=== PATIENT | female | born 1995 | race Caucasian/White ===

== ENCOUNTER 2022-05-31 12:28 | Outpatient (CLI) | payer OTHER, SELFPAY ==
--- NOTE | ~2022-05-31 | US_ITS ---
EXAMINATION: US OB <= 14 weeks fetus DATE: 05/31/2022 13:01 INDICATION: First trimester dating TECHNIQUE: Real-time pelvic transabdominal and transvaginal ultrasound was performed. COMPARISON: None. FINDINGS: The uterus measures 10.6 x 7.2 x 5.2 cm. There is an intrauterine gestational sac. A yolk sac is identified. heart motion is identified measuring 157 beats per minute (bpm) by M-mode Do ppler. The crown rump length measures 1.8 cm, which correlates with an estimated gestational ag e of 8 weeks and 2 day(s) (+/-) 5 day(s). The ovaries are not visualized however no adnexal abnormality is seen. There is no free fluid in the pelvis. IMPRESSION: 1. Live intrauterine with an estimated gestational age of 8 weeks and 2 day(s) (+/-) 5 day( s) and an estimated delivery date of 01/08/2023. Reviewed, dictated and finalized at location B. ATTENDANT IMPRESSION: 1. Live intrauterine with an estimated gestational age of 8 weeks and 2 day(s) (+/-) 5 day(s) and an estimated delivery date of 01/08/2023.
== END 2022-05-31 12:29 | disposition home or self-care (01) ==
PROVIDERS: PCP Nurse Practitioner Family; Visit Provider Obstetrics & Gynecology
DX: Z36.87 Encounter for antenatal screening for uncertain dates (principal); Z3A.08 8 weeks gestation of pregnancy
CPT/HCPCS: 76801

== ENCOUNTER 2022-11-08 10:45 | Outpatient (RCR) | payer OTHER, SELFPAY ==
[2022-11-08 11:01] VITALS: BP 114/72; PULSE 106
[2022-11-08 11:16] VITALS: BP 106/68; PULSE 95
[2022-11-08 11:31] VITALS: BP 105/65; PULSE 91
[2022-11-08 11:40] VITALS: BP 114/72; PULSE 89
== END 2023-01-03 12:45 | disposition home or self-care (01) ==
LOC: ANHOBOP 10:45
PROVIDERS: PCP Nurse Practitioner Family; Visit Provider Obstetrics & Gynecology
DX: O36.8130 Decreased fetal movements, third trimester, not applicable or unspecified (principal); Z3A.31 31 weeks gestation of pregnancy
CPT/HCPCS: 59025

== ENCOUNTER 2022-12-27 07:22 | Inpatient (IN) | payer OTHER, SELFPAY ==
[2022-12-27] VITALS (52 sets, daily range): BP systolic 104–169; BP diastolic 50–126; PULSE 82–146; RESP 14–18; TEMP 36.1–36.8; O2SAT 96–100; BMI 34.0
--- NOTE | 2022-12-27 07:52 | P.HP_ITS ---
H&P: HPI History of Present Illness Date/Time: 12/27/22 07:52 Chief Complaint: Ruptured membranes Narrative: this is a 27-year-old 3 para 2 whose last menstrual period was 03/13/2022, and EDC is 01/08/2023, confirmed by 8 week ultrasound presents at term in active labor. She is positive for group B strep. She has a history of depression anxiety has been on sertraline and Wellbutrin. She stopped the sertraline. [facility] Past Medical History Medical History Anxiety Depression History of blood transfusion HLD (hyperlipidemia) IUD (intrauterine device) in place Family History Family History Other Patient denies significant medical history Social History Social History Smoking status: Current every day smoker Substance use: never Spiritual care concerns: No Meds Home Medications and Allergies Home Medications Medication Instructions Recorded Confirmed Type bupropion HCl 300 mg 24 hr tablet, 300 mg PO QAM 12/13/22 12/13/22 History extended release prenat.vits,howard,[id number] 1 tablet 12/13/22 History Allergies Allergy/AdvReac Type Severity Reaction Status Date / Time No Known Allergies Allergy Unverified 03/09/18 11:03 Vital Signs Vital Signs - 24 hr 12/27/22 07:45 Pulse Rate 97 Blood Pressure 128/89 Exam Const: General: cooperative, healthy appearing and comfortable Nutritional Appearance: average body habitus Orientation/consciousness: oriented to person, oriented to place and oriented to time HENMT: Head: normal to inspection Resp: Effort & Inspection: normal respiratory effort Cardio: Rate: regular rate Rhythm: regular rhythm Heart sounds: S1 no rmal heart sound present and S2 normal heart sound present GI: Inspection: normal to inspection ( Gravid soft uterus) : External Female Exam: normal external appearance Speculum Exam - Vagina: normal appearance of the vagina Speculum Exam - Cervix: normal appearance of the cervix ( 5cm / clear fluid/ heart tones reassuring) Assessment and Plan Assessment and plan (1) Term : Code(s): Z34.90 - Encounter for supervision of normal , unspecified, unspecified trimester Status: Acute (2) Positive testing for group B Streptococcus: Code(s): B95.1 - Streptococcus, group B, as the cause of diseases classified elsewhere Status: Acute (3) Spontaneous rupture of membranes: Status: Acute Plan spontaneous vaginal delivery expected. Group B strep prophylaxis will be undertaken. She is an epidural candidate
[2022-12-27] MEDS: AMPICILLIN 2 GM/NS 100 ML 2 GM/100 ML BAG IVPB (08:10)
[2022-12-27 08:13] LABS: Basophils Absolute Auto 0.1 K/mm3 (0.0-0.1); Basophils Percent Auto 0.6 % (0.2-1.2); Eosinophils Absolute Auto 0.1 K/mm3 (0-0.3); Eosinophils Percent Auto 0.7 % (0-4.4); Immature Granulocyte Percent A 1.5 % (0-0.5); Lymphocytes Absolute Auto 2.06 K/mm3 (0.9-3.2); Lymphocytes Percent Auto 15.4 % (18.3-44.2); Mean Corpuscular HGB Conc 33.3 g/dl (32-36); Mean Platelet Volume 10.5 fl (7.4-10.4); Monocytes Absolute Auto 0.8 K/mm3 (0.1-0.6); Monocytes Percent Auto 6.3 % (2.6-8.5); Neutrophils Absolute Auto 10.1 K/mm3 (1.3-6.7); Neutrophils Percent Auto 75.5 % (45.5-73.1); Platelet Count Result 187 k/mm3 (150-375); Red Blood Count 3.94 M/mm3 (4.2-5.4); Red Cell Distribution Width 13.4 % (11.5-14.5); White Blood Count 13.4 K/mm3 (4.5-10.0)
[2022-12-27] MEDS: fentaNYL CITRATE INJ (*CRX) 100 MCG/2 ML VIAL 50 MCG IV PUSH (08:20)
[2022-12-27] MEDS: LACTATED RINGERS 1,000 ML 125 ML IV CONT ×2 (08:21→10:22)
--- NOTE | 2022-12-27 08:28 | LDADM ---
This patient, Jerica Cannon, was admitted to Labor/Delivery/Recovery 105 on 12/27/22 at 07:22. Plans for labor, pain management and were discussed with patient. Patient/family oriented to hospital policies and general routines including ID bracelet, bed and alarms, visiting hours, pain management, procedures, bathroom and other care routines, personal items, smoking policy, room service/diet and guest tray routines, infant security routines, and visiting hours. Patient/Family are encouraged to report perceived risks to care and to ask questions if they do not understand what they are told or what they should do. See OBIX for further documentation.
[2022-12-27] MEDS: OXYTOCIN 30 UNITS/NS 500 ML 30 UNITS/500 ML BAG 999 UNITS IV CONT (09:41)
--- NOTE | 2022-12-27 09:46 | PM.OBPRVD ---
OB - Delivery Note Procedure Delivery date: 12/27/22 Events: Positive Group B Strep (GBS) Induction method: None Delivery monitor: External FHT Route of delivery: Episiotomy description: None Laceration Description: None Specimen: No Quantitative Blood Loss (ml): 60 Anesthesia type: Epidural Disposition: Floor Baby Date of : 12/27/22 Time of : 09:38 Weeks of gestation at delivery: 38 Infant gender: Female presentation: vertex position: Left Occiput Anterior Placenta delivery description: Spontaneous Cord Vessel Description: 3 Vessels score one minute: 8 score five minutes: 9 Narrative: amp x 1
--- NOTE | 2022-12-27 09:48 | PM.DS ---
DS: Admitting Diagnosis Discharge Date 12/29/22 Admitting Diagnosis Term / positive group B strep DS: Discharge Diagnosis Discharge Diagnosis (1) Spontaneous rupture of membranes: Status: Acute (2) Positive testing for group B Streptococcus: Code(s): B95.1 - Streptococcus, group B, as the cause of diseases classified elsewhere Status: Acute (3) Term : Code(s): Z34.90 - Encounter for supervision of normal , unspecified, unspecified trimester Status: Acute DS: Summary Hospital Course Reason for hospitalization: spontaneous rupture membranes at term Hospital Course: patient was admitted at 38 half weeks gestation with spontaneous rupture membranes prior to admission. She is positive group B strep receive 1 dose of ampicillin and epidural anesthesia delivered spontaneously the female infant. Her hospital course unremarkable. She remained afebrile. She was up, voiding without difficulty, eating regular diet, ambulating, generally without complaints. Time Spent with Patient Time attestation: Total time spent providing and/or coordinating discharge services: Exam Const: General: cooperative, healthy appearing and comfortable Nutritional Appearance: average body habitus Orientation/consciousness: oriented to person, oriented to place and oriented to time HENMT: Head: normal to inspection Resp: Effort & Inspection: normal respiratory effort Cardio: Rate: regular rate Rhythm: regular rhythm Heart sounds: S1 normal heart sound present and S2 normal heart sound present GI: Inspection: normal to inspection ( Fundus firm below umbilicus) DS: Data Data Completed and Pending Labs on day of discharge: Labs from last 24 hours 12/27/22 07:51 WBC 13.4 H RBC 3.94 L Hgb 13.0 Hct 39.0 MCV 99.0 MCH 33.0 MCHC 33.3 RDW 13.4 Plt Count 187 MPV 10.5 H Immature Gran % (Auto) 1.5 H Neut % (Auto) 75.5 H Lymph % (Auto) 15.4 L [place] % (Auto) 6.3 Eos % (Auto) 0.7 Baso % (Auto) 0.6 Lymph # (Auto) 2.06 [place] # (Auto) 0.8 H Eos # (Auto) 0.1 Baso # (Auto) 0.1 Abs Immat Gran (auto) 0.20 H Absolute Neuts (auto) 10.1 H Absolute Nucleated RBC 0.0 Nucleated RBC % 0.0 RPR Pending Blood Type O Positive Antibody Screen Negative Discharge Plan Discharge Attending physician on discharge: Pollo Sorenson Discharging Clinician: Pollo Sorenson Patient Disposition: Home, Self-Care Activity: may shower and pelvic rest Diet: heart healthy Wound Care Instructions: follow printed instructions Patient Instructions: Antibiotic Form Stand Alone Forms: General Discharge Information Follow-up/Referrals: Pollo Sorenson MD [Physician] - Discharge Medications: Continued #2 Tablet 1 tablet bupropion HCl 300 mg Tablet Extended Release 24 Hr 300 mg PO QAM Date of admission: 12/27/22 07:22 Primary Care Provider: Gillian,Sary Woods Admitting Provider: Pollo Sorenson Attending physician on admission: Pollo Sorenson Condition: Stable
[2022-12-27] MEDS: OXYTOCIN 30 UNITS/NS 500 ML 30 UNITS/500 ML BAG 125 UNITS IV CONT (10:20)
[2022-12-27] MEDS: WITCH HAZEL 40 PADS 1 PAD TOPICAL (11:17)
[2022-12-27] MEDS: BENZOCAINE 20% AER SPR (*SP) 56 GM CAN 1 SPRAY TOPICAL (11:17)
--- NOTE | 2022-12-27 11:21 | WPDANESEPPF ---
Anes - Initial Pre Proc Eval Date/Time: 12/27/22 11:21 Surgeon: Pollo Li MD Pre Op Diagnosis: Labor Patient Data Age: 27 Gender: F Height: 1.63 m Weight: 90 kg Last Vital Signs Temp 36.1 C L 12/27/22 09:20 Pulse 82 12/27/22 11:15 BP 123/80 12/27/22 11:15 Pulse Ox 100 12/27/22 09:37 O2 Del Method Room Air 12/27/22 08:26 Allergies Allergy/AdvReac Type Severity Reaction Status Date / Time No Known Allergies Allergy Unverified 03/09/18 11:03 Home Medications Medication Instructions Recorded Confirmed Type bupropion HCl 300 mg 24 hr tablet, 300 mg PO QAM 12/13/22 12/13/22 History extended release prenat.vits,howard,yik-[id number] 1 tablet 12/13/22 History Laboratory Tests 12/27/22 07:51 WBC 13.4 H K/mm3 (4.5-10.0) RBC 3.94 L M/mm3 (4.2-5.4) Hgb 13.0 g/dL (12.0-15.0) Hct 39.0 % (37.0-47.0) MCV 99.0 fl (80-100) MCH 33.0 pg (26-34) MCHC 33.3 g/dl (32-36) RDW 13.4 % (11.5-14.5) Plt Count 187 k/mm3 (150-375) MPV 10.5 H fl (7.4-10.4) Immature Gran % (Auto) 1.5 H % (0-0.5) Neut % (Auto) 75.5 H % (45.5-73.1) Lymph % (Auto) 15.4 L % (18.3-44.2) [place] % (Auto) 6.3 % (2.6-8.5) Eos % (Auto) 0.7 % (0-4.4) Baso % (Auto) 0.6 % (0.2-1.2) Lymph # (Auto) 2.06 K/mm3 (0.9-3.2) [place] # (Auto) 0.8 H K/mm3 (0.1-0.6) Eos # (Auto) 0.1 K/mm3 (0-0.3) Baso # (Auto) 0.1 K/mm3 (0.0-0.1) Abs Immat Gran (auto) 0.20 H K/mm3 (0.00-0.031) Absolute Neuts (auto) 10.1 H K/mm3 (1.3-6.7) Absolute Nucleated RBC 0.0 K/mm3 (0.0-0.012) Nucleated RBC % 0.0 % (0.0-0.2) RPR Pending Blood Type O Positive Antibody Screen Negative Patient hx anesthesia problems: none Family hx anesthesia problems: none Results Review: All pre-operative results and documents have been reviewed as part of the pre-operative evaluation. PMFSH Past Medical History Medical History Anxiety Depression History of blood transfusion HLD (hyperlipidemia) IUD (intrauterine device) in place Family History Family History Other Patient denies significant medical history Social History Social History Smoking status: Former smoker Tobacco type: cigarettes Second hand tobacco smoke exposure: No Substance use: never Lack of Transportation: No Lack of Food: Never True Current Housing: I Have Housing Concerned About Future Housing: No Difficulty Paying Gas/Electric Bills: No Difficulty Paying for Meds: No Currently Unemployed: No Education: Don't Know Difficulty w/ Childcare or Family Care: No Spiritual care concerns: No Anes - Eval Final PreProcedure Day of Procedure 12/27/22 11:21 Patient weight: obese Heart: regular rate and rhythm Lungs: clear to auscultation Neurological: alert and oriented ASA classification: II Emergent: no Anesthetic plan: proceed Anesthesia type and monitoring: regional epidural and standard monitoring Results Review: All pre-operative results and documents have been reviewed as part of the pre-operative evaluation. Informed Consent: The patient's anesthetic plan and its attendant risks and benefits were discussed with the patient/family/POA. Questions were solicited and answers provided to the satisfaction of the patient/family/POA.
--- NOTE | 2022-12-27 12:02 | PC.NURSE ---
Patient transferred to post room #287 via stretcher. Support person present. Oriented to unit, room, information board, rooming in, admission packet and security measures. Patient verbalizes understanding.
[2022-12-27 15:49] LABS: Rapid Plasma Reagin Non-Reactive (NonReactive)
--- NOTE | 2022-12-27 16:15 | PC.NURSE ---
[id number] Introductions were made, then consulted with patient to assess needs related to . P3 Mother led the conversation with her?plans to feed?her infant, the?experience so far, use of a nipple shield and not a successful history. Mother works well with her with encouragement and education. Nipple shield provided to mother due to right nipple is inverted. Discussed with mom the nipple shield precautions, possible complications associated with the risks and benefits. Reviewed practicing with a nipple shield, then without and how to protect the milk supply and production. Encouraged understanding of the benefits of skin to skin (demonstrating unwrapping and placing upright on her chest), stimulating with massage touch, how to watch for early feeding cues, responsive feeding, feeding on demand and milk production. Reviewed positioning and ear, shoulder, hip alignment, supporting the breast to facilitate a deep latch, asymmetrical latch (off-center), leading with the chin with a big, open, wide gape and body close to mother. Infant latched optimally to the right breast with a nipple shield (nipple inverted) in football position. Reviewed with mother the nipple shield waltz that once the is sucking, then remove the nipple shield and aim to latch without it. refused to latch without the nipple shield. Nipple care reviewed with optimal latch and good positioning. More visitors came into the room and the consult was ended. Resources provided for inpatient with name written on the communication board. Parents voiced understanding of information, demonstrated learning and RN reported to the primary RN.
[2022-12-27] MEDS: IBUPROFEN 600 MG TABLET PO (21:45)
[2022-12-28] MEDS: IBUPROFEN 600 MG TABLET PO ×3 (04:01→19:54)
[2022-12-28 04:32] LABS: Hematocrit 36.5 % (37.0-47.0); Hemoglobin 12.3 g/dL (12.0-15.0)
--- NOTE | 2022-12-28 06:12 | P.PNOB_ITS ---
OB - PN: Subj Subjective Date/time seen: 12/28/22 06:12 Patient comments: no complaints and pain well controlled baby status: doing well OB - PN: Obj Data Labs 12/28/22 03:57 Labs: Laboratory Results - last 24 hr 12/27/22 12/28/22 07:51 03:57 WBC 13.4 H RBC 3.94 L Hgb 13.0 12.3 Hct 39.0 36.5 L MCV 99.0 MCH 33.0 MCHC 33.3 RDW 13.4 Plt Count 187 MPV 10.5 H Immature Gran % (Auto) 1.5 H Neut % (Auto) 75.5 H Lymph % (Auto) 15.4 L [place] % (Auto) 6.3 Eos % (Auto) 0.7 Baso % (Auto) 0.6 Lymph # (Auto) 2.06 [place] # (Auto) 0.8 H Eos # (Auto) 0.1 Baso # (Auto) 0.1 Abs Immat Gran (auto) 0.20 H Absolute Neuts (auto) 10.1 H Absolute Nucleated RBC 0.0 Nucleated RBC % 0.0 RPR Non-reactive Blood Type O Positive Antibody Screen Negative OB - PN A/P Plan day: 1 Plan: routine care Time Spent With Patient Time: Total time spent is greater than 50% in coordination of care (as documented) at patient's floor/unit and/or counseling patient: Time with patient: less than 15 minutes Exam Const: General: cooperative, healthy appearing and comfortable Nutritional Appearance: average body habitus Orientation/consciousness: oriented to person, oriented to place and oriented to time HENMT: Head: normal to inspection Resp: Effort & Inspection: normal respiratory effort Cardio: Rate: regular rate Rhythm: regular rhythm Heart sounds: S1 normal heart sound present and S2 normal heart sound present GI: Inspection: normal to inspection
[2022-12-28 08:00] VITALS: BP 116/86; PULSE 88; RESP 16; TEMP 36.6; O2SAT 99
--- NOTE | 2022-12-28 08:23 | WPDANLDPN2 ---
Anes-Prog Note L&D Date/Time: 12/28/22 08:23 Neuro status: Neuro function grossly intact. Cardiovascular status: normal Respiratory status: normal Airway patency: baseline Mental status: baseline Post-Op hydration status: normal Vital Signs: Last Vital Signs Temp 36.8 C 12/27/22 23:00 Pulse 88 12/27/22 23:00 Resp 18 12/27/22 23:00 BP 112/71 12/27/22 23:00 Pulse Ox 98 12/27/22 23:00 O2 Del Method Room Air 12/27/22 23:00 Pain score (VAS): 0 Post-procedural complaints: none Patient feedback: Patient satisfied with anesthetic care.
[2022-12-28] MEDS: BENZOCAINE 20% AER SPR (*SP) 56 GM CAN 1 SPRAY TOPICAL (09:00)
[2022-12-28] MEDS: DOCUSATE SODIUM 100 MG CAPSULE PO ×2 (09:00→16:00)
[2022-12-28] MEDS: MULTIVIT/MIN/PREN/FOL AC/IRON TABLET 1 TAB PO (09:00)
[2022-12-28] MEDS: WITCH HAZEL 40 PADS 1 PAD TOPICAL (09:00)
[2022-12-28] MEDS: ACETAMINOPHEN 325 MG TABLET 650 MG PO (16:00)
[2022-12-28 20:16] VITALS: BP 123/84; PULSE 78; RESP 16; TEMP 36.7; O2SAT 98
[2022-12-29] MEDS: ACETAMINOPHEN 325 MG TABLET 650 MG PO (04:28)
--- NOTE | 2022-12-29 07:06 | PM.OBPNVD ---
OB - PN: Subj Subjective Date/time seen: 12/29/22 07:06 Patient comments: no complaints and pain well controlled baby status: doing well and nursing well OB - PN: Obj Data Labs 12/28/22 03:57 OB - PN A/P Plan day: 2 Plan: routine care, discharge home and follow up 6 weeks Time Spent With Patient Time: Total time spent is greater than 50% in coordination of care (as documented) at patient's floor/unit and/or counseling patient: Time with patient: less than 15 minutes Exam Const: General: cooperative, healthy appearing and comfortable Nutritional Appearance: average body habitus Orientation/consciousness: oriented to person, oriented to place and oriented to time Resp: Effort & Inspection: normal respiratory effort Cardio: Rate: regular rate Rhythm: regular rhythm Heart sounds: S1 normal heart sound present and S2 normal heart sound present GI: Inspection: normal to inspection
[2022-12-29] MEDS: DOCUSATE SODIUM 100 MG CAPSULE PO (08:30)
[2022-12-29] MEDS: IBUPROFEN 600 MG TABLET PO (08:30)
[2022-12-29] MEDS: MULTIVIT/MIN/PREN/FOL AC/IRON TABLET 1 TAB PO (08:30)
[2022-12-29 08:35] VITALS: BP 112/75; PULSE 73; RESP 18; TEMP 37.2; O2SAT 99
[2022-12-30 10:19] VITALS: BP 128/85; PULSE 94; RESP 18; TEMP 37.1; O2SAT 98
== END 2022-12-29 10:28 | disposition home or self-care (01) | DRG 560 ==
LOC: ANHLDR 09:50 → ANHOB2 12:21
PROVIDERS: Admitting Provider Obstetrics & Gynecology; PCP Nurse Practitioner Family; Visit Provider Obstetrics & Gynecology
DX: O62.3 Precipitate labor (principal); Z37.0 Single live birth; Z3A.38 38 weeks gestation of pregnancy; O99.824 Streptococcus B carrier state complicating childbirth; O99.344 Other mental disorders complicating childbirth; F32.A Depression, unspecified; F41.9 Anxiety disorder, unspecified
CPT/HCPCS: 36415; 85014; 85018; 85025; 86592; 86850; 86900; 86901; A9270; J0290; J2590; J2795; J3010; J7120

== ENCOUNTER 2025-03-02 12:41 | Emergency (ER) | payer OTHER, SELFPAY ==
[2025-03-02 12:54] VITALS: BP 123/90; PULSE 67; RESP 16; TEMP 36.3
[2025-03-02 13:14] LABS: EDSTREPNEGPOS1 Negative (Negative)
--- NOTE | 2025-03-02 13:32 | ED_ITS ---
HPI - URI/Sore Throat General Chief Complaint: Upper Respiratory Infection Stated Complaint: Sore Throat Time Seen by Provider: 03/02/25 13:34 Source: patient and RN notes reviewed Mode of arrival: ambulatory Limitations: no limitations History of Present Illness HPI Narrative: 29-year-old female presents with concern for 2 week history of sore throat, nasal congestion, rhinorrhea. She reports general malaise. She has been taking [id number] medications without relief. MD elicited complaint: cough, sore throat, nasal congestion and sinus pain Related Data Home Medications ?Medication ?Instructions ?Recorded ?Confirmed ?Last Taken ?Type bupropion HCl 300 mg 24 hr tablet, 300 mg PO QAM 12/1303/02/25 12/12/22 22:00 History extended release prenat.vits,howard,lip-yerc-pzpwu 1 tablet 12/13/2211/21 20:00 History Allergies Allergy/AdvReac Type Severity Reaction Status Date / Time No Known Allergies Allergy Verified 03/02/25 13:15 Review of Systems Review of Systems: CONSTITUTIONAL: Reports malaise, history chills, sweats, fever. EYES: Denies visual changes, redness, or discharge. ENT: Reports rhinorrhea, congestion, sinus pain, and sore throat. CARDIOVASCULAR: Denies chest pain, palpitations, or edema. RESPIRATORY: Reports cough. Denies dyspnea. GASTROINTESTINAL: Denies abdominal pain, nausea, vomiting, diarrhea SKIN: Denies rash or itching. MUSCULOSKELETAL: Reports myalgia. NEUROLOGIC: Reports headache. All systems reviewed & are unremarkable except as noted in HPI and below PMFSH Past Medical History Medical History (Updated 03/02/25 @ 13:33 by Cora Theodore NP) History of blood transfusion Anxiety Depression IUD (intrauterine device) in place HLD (hyperlipidemia) Family History Family History Other Patient denies significant medical history Social History Social History Smoking status: Former smoker Tobacco type: cigarettes Second hand tobacco smoke exposure: No Substance use: never Lack of Transportation: No Lack of Food: Never True Current Housing: I Have Housing Concerned About Future Housing: No Difficulty Paying Gas/Electric Bills: No Difficulty Paying for Meds: No Currently Unemployed: No Education: Don't Know Difficulty w/ Childcare or Family Care: No Spiritual care concerns: No Comments At time of signature, agree with nursing past medical, surgical, social and family history. There is no relevant family history pertinent to the presenting complaint Exam Narrative: GENERAL: Well-appearing, well-nourished, and in no acute distress. HEAD: Normocephalic EYES: PERRLA, conjunctivae clear ENT: Nares clear, turbinates edematous and erythematous. Mucous membranes moist. TM pearly santillan with dull light reflex bilaterally; no tragal tenderness. Oropharynx not erythematous without lesions. Tonsils not enlarged and without exudate, no drooling, no hoarseness, no trismus, uvula midline. NECK: Supple. No lymphadenopathy CHEST: Clear to auscultation, breath sounds equal. No wheezing, rhonchi, rales, or stridor. No respiratory distress, speaks in full sentences. HEART: Regular rate and rhythm. No murmur heard. SKIN: Warm, dry, no rash. NEURO: Alert and oriented x3. PSYCH: Normal mood and affect Course Course Emergency Course: Patient is aware of diagnosis, understands and agrees to treatment plan. Anticipatory guidance given. Patient agrees to follow-up as directed and is aware of reasons to seek care at the emergency department. Portions of this record may have been created with voice recognition software Level of Care: Express Care Visit Vital Signs Vital signs: Vital Signs Temperature 97.3 F L 03/02/25 12:54 Pulse Rate 67 03/02/25 12:54 Respiratory Rate 16 03/02/25 12:54 Blood Pressure 123/90 03/02/25 12:54 Oxygen Delivery Room Air 03/02/25 12:54 Temperature 97.3 F L 03/02/25 12:54 Pulse Rate 67 03/02/25 12:54 Respiratory Rate 16 03/02/25 12:54 Blood Pressure 123/90 03/02/25 12:54 Oxygen Delivery Room Air 03/02/25 12:54 Reviewed. MDM - URI/Sore Throat MDM Narrative Medical decision making narrative: Differential diagnosis considered: Zambrano virus, strep pharyngitis, allergic rhinitis, upper respiratory tract infection, sinusitis, rhinosinusitis, nasopharyngitis. viral pharyngitis, otitis media, otitis externa, pneumonia, bronchitis, viral cough syndrome, viral syndrome, and influenza. Exam findings show no acute concerns or changes; patient is non-toxic appearing and is in no distress. Patient is appropriate for outpatient treatment and follow-up. Lab Data Attestation: I reviewed the patient's lab results. Labs: Lab Results 03/02/25 Range/Units 13:13 POC Grp A Strep Screen Negative (Negative) Critical Care Time Critical Care Time Critical Care Time: No Discharge Plan Discharge Clinical Impression: Sinusitis Patient Disposition: Home Condition: Stable Instructions: Antibiotic Form, Sinusitis (ED) Additional Instructions: Take medication as prescribed Nonprescription pain medications, such as acetaminophen (eg, Tylenol) or ibuprofen (eg, Motrin, Advil), are recommended for pain. Flushing the nose and sinuses with a saline solution several times per day has been proven to decrease pain associated with congestion and shorten the duration of symptoms. Nasal steroids (such as Flonase, 2 sprays in each nostril daily) can help to reduce swelling inside the nose, usually within two to three days. These drugs have few side effects and relieve symptoms in most people. Oral decongestants (pseudoephedrine and phenylephrine) may be helpful if you h ave associated symptoms of ear pain or fullness. Nasal decongestant sprays, including oxymetazoline (Afrin) and phenylephrine (Giancarlo-Synephrine), can be used to temporarily treat congestion. However, these sprays should not be used for more than two to three days due to the risk of rebound congestion (when the nose becomes congested constantly unless the medication is used repeatedly), possible addiction, and long-term consequences of frequent use, including persistent nasal dryness and crusting, which is very difficult to treat once it has developed. Medications to thin secretions (such as guaifenesin) may help to clear mucus. Please follow-up with your primary care doctor in the next 1-2 days. If you cannot follow-up with your primary care doctor please go to the ED for any urgent issues. If you have any worsening of symptoms or any other concerns please go to the ED immediately. Patient Language: Upper Sorbian Prescriptions: New amoxicillin-pot clavulanate 875-125 mg tablet 1 tablet PO Q12H 10 Days Qty: 20 0RF methylprednisolone [Medrol (Gu[place])] 4 mg tablets,dose pack See Rx Instructions .ROUTE .COMPLEX Qty: 21 0RF Rx Instructions: orally per package directions No Action prenat.vits,howard,[id number]-[id number] Tablet 1 tablet bupropion HCl 300 mg Tablet Extended Release 24 Hr 300 mg PO QAM Follow-up/Referrals: PHYSICIAN,ACCOUNTS COLLECTOR [Primary Care Provider, Internal Medicine] Time of Disposition: 13:34
== END 2025-03-02 13:40 | disposition home or self-care (01) ==
PROVIDERS: Emergency Provider Nurse Practitioner
DX: J32.9 Chronic sinusitis, unspecified (principal); Z87.891 Personal history of nicotine dependence; E78.5 Hyperlipidemia, unspecified; F41.9 Anxiety disorder, unspecified; F32.A Depression, unspecified; Z97.5 Presence of (intrauterine) contraceptive device
CPT/HCPCS: 87081; 87880; 99213; G0463